=== PATIENT | male | born 1990 | race Caucasian/White ===

== ENCOUNTER 2024-07-11 12:35 | Emergency (ER) | payer SELFPAY ==
[2024-07-11 12:39] VITALS: BP 153/99
[2024-07-11 13:16] LABS: Urine Albumin 1+ (Neg - Trace); Urine Bilirubin Negative (Negative); Urine Character Clear (Clear); Urine Color Yellow; Urine Glucose Negative (Negative); Urine Ketone Negative (Negative); Urine Leukocyte 1+ (Negative); Urine Nitrite Negative (Negative); Urine Occult Blood Negative (Negative); Urine Specific Gravity 1.015 (<1.030); Urine Urobilinogen Negative (Neg - 1+)
[2024-07-11 13:19] LABS: % Basophils 0.9 % (0-2); % Eosinophils 9.3 % (0-6); % Immature Granulocytes 0.3 % (0-0.5); % Lymphocytes 31.3 % (20.5-51.1); % Monocytes 10.7 % (1.7-9.3); % Neutrophils 47.5 % (42.2-75.2); Absolute Basophils 0.1 10^3/uL (0-0.2); Absolute Eosinophils 0.7 10^3/uL (0-0.7); Absolute Lymphocytes 2.4 10^3/uL (1.2-3.4); Absolute Monocytes 0.8 10^3/uL (0.1-0.6); Absolute Neutrophils 3.6 10^3/uL (1.4-6.5); Hematocrit 41.4 % (39.0-52.0); Hemoglobin 14.8 g/dL (13.0-18.0); Mean Corp Hgb Conc. 35.7 g/dL (33.0-37.0); Mean Corpuscular Hgb 32.7 pg (27.0-31.0); Mean Corpuscular Volume 91.4 fL (80.0-94.0); Mean Platelet Volume 8.6 fL (7.4-10.4); Nucleated Red Blood Cells % 0 % (-); Platelet Count 354 10^3/uL (130-400); Red Blood Cell Count 4.53 10^6/uL (4.70-6.10); Red Cell Dist. Width 12.8 % (11.5-14.5); White Blood Cell Count 7.6 10^3/uL (4.8-10.8)
[2024-07-11 13:28] LABS: ALT (SGPT) 136 U/L (0-50); AST (SGOT) 49 U/L (17-59); Albumin 4.6 g/dl (3.5-5.0); Alkaline Phosphatase 56 U/L (38-126); Blood Urea Nitrogen 21 mg/dl (9-20); Calcium 9.6 mg/dl (8.4-10.2); Carbon Dioxide 29 mmol/L (22-30); Chloride 105 mmol/L (98-107); Glucose 113 mg/dl (70-99); Sodium 141 mmol/L (135-145); Total Protein 7.5 g/dl (6.3-8.2); eGFR > 60.00
[2024-07-11 13:30] LABS: Urine Squamous Cell 0-2 /LPF (Few)
[2024-07-11 13:31] LABS: Urine Red Blood Cell 0-2 /HPF (0-2); Urine White Cell 0-2 /HPF (0-5)
[2024-07-11 13:53] LABS: Benzodiazepines Positive (Negative); Marijuana Positive (Negative)
[2024-07-11 13:54] LABS: Amphetamines Positive (Negative); Barbiturates Negative (Negative); Buprenorphine Negative (Negative); Cocaine Negative (Negative); Methadone Negative (Negative); Methamphetamines Negative (Negative); Opiates Negative (Negative); Phencyclidine Negative (Negative); Tricyclic Antidepressants Negative (Negative)
[2024-07-11 14:35] LABS: Fentanyl, Urine Negative (Negative)
[2024-07-11 15:16] VITALS: BP 143/96
[2024-07-11 17:43] VITALS: BP 152/74
--- NOTE | 2024-07-11 17:52 | ED.GENMED ---
History of Present Illness
General
Chief Complaint: Change in Mental Status
Time Seen by Provider: 07/11/24 17:18
History of Present Illness
History of Present Illness:
34-year-old male with history of anxiety presenting for feeling 'out of it.' Patient reports that he lost his job about 2 months ago and has since had a progressive decline. Patient admits to using nitrous oxide, last use was 2 days ago, however
admits to using a lot 2 days ago. He also uses edibles, used 1 yesterday. He reports that he has been feeling delayed. He notes that he understands that everyone is saying, however has difficulty processing. They went to [place] yesterday, was
evaluated, and then patient left the hospital. Does note that he had imaging of his head at that time. Denies SI or HI. Does report a lot of anxiety, and notes that he has been clutching his abdomen when he is anxious. Denies chest pain or
difficulty breathing. Also reports right ear pain, for which he was started on amoxicillin for suspected ear infection. He believes all of his symptoms are stemming from his ear. Denies additional acute medical complaints
Past History
Past History
ED Past Medical History: None
ED Past Surgical History: None
Social History
Tobacco: Non-smoker
Employment: Employed
Phy Exam
Physical Exam
Physical Exam:
General: Well-appearing, no clinical signs of dehydration, nontoxic and in no acute distress
HEENT: protecting airway, pupils equal and reactive, extraocular movements intact. No significant erythema to the right TM. Mild tenderness to the tragus and external ear canal. No drainage. No tenderness to the mastoid
Neck: appears supple
CV: Normal heart rate, regular rhythm
Resp: No accessory muscle use, no increased work of breathing, lungs clear to auscultation bilaterally
Abd: Soft and non-distended, no tenderness to palpation
Extremities: No deformities, no swelling, no erythema
Neuro: alert, no focal neurologic deficit
: deferred
Rectal: deferred
Psych: Normal affect
Skin: Intact
Course
Orders/Labs/Results
Orders:
Orders
07/11/24 12:46
Electrocardiogram (*1) Urgent
Reason for Study: Tachycardia
EKG- Treatment ONCE
07/11/24 12:49
Crisis Consult Urgent
Reason for Consult: depression
07/11/24 13:01
Complete Blood Count/With Diff Urgent
Comprehensive Metabolic Panel Urgent
Fentanyl, Urine Urgent
Urinalysis Reflex To Culture Urgent
Date Specimen was Collected: 07/11/24
Time Specimen was Collected: 12:46
Urine Drug Abuse Screen Urgent
Date Specimen was Collected: 07/11/24
Time Specimen was Collected: 12:46
Urine Microscopic Reflex Cult Urgent
Urine Culture Urgent
CHANI Source: U
Specimen Description:
Date Specimen was Collected: 07/11/24
Time Specimen was Collected: 12:46
07/11/24 17:37
CT Head W/o Iv Contrast Urgent
Comment:
Reason For Exam: confusion
Abnormal Lab Results
07/11/24
13:01
RBC 4.53 L 10^6/uL
(4.70-6.10)
MCH 32.7 H pg
(27.0-31.0)
Absolute Monos (auto) 0.8 H 10^3/uL
(0.1-0.6)
Monocytes % 10.7 H %
(1.7-9.3)
Eosinophils % 9.3 H %
(0-6)
BUN 21 H mg/dl
(9-20)
Glucose 113 H mg/dl
(70-99)
ALT 136 H U/L
(0-50)
Leukocyte Esterase Rfl 1+ A
(Negative)
Urine Albumin (Reflex) 1+ A
(Neg - Trace)
Ur Amphetamines Screen Positive H
(Negative)
U Benzodiazepines Scrn Positive H
(Negative)
U Marijuana (THC) Screen Positive H
(Negative)
07/11/24 13:01
07/11/24 13:01
Vital Signs
Initial and Last Documented VS:
Initial Vital Signs
Temp Pulse Resp BP Pulse Ox
98.4 F 121 18 153/99 98
07/11/24 12:39 07/11/24 12:39 07/11/24 12:39 07/11/24 12:39 07/11/24 12:39
Last Documented Vital Signs
Temp Pulse Resp BP Pulse Ox
97.7 F 76 20 152/74 98
07/11/24 15:16 07/11/24 17:43 07/11/24 17:43 07/11/24 17:43 07/11/24 17:43
MDM/Problems Addressed
MDM/Problems Addressed:
34-year-old male presenting to the emergency department for fogginess and feeling out of it for the past several weeks, worsened in the past 2 days. Vitals on arrival are significant for mild hypertension.
On exam patient is resting comfortably, no acute distress. Patient is awake, alert, oriented. He does not presently appear to be confused, does have a strange affect. He is hemodynamically stable. No focal neurologic deficits on exam.
Ultimately suspect the patient symptoms are secondary to polysubstance abuse. Patient reports using nitrous oxide, marijuana, alcohol. Patient had screening laboratory analysis prior to my assessment. Labs are unremarkable. Patient's UDS however
is positive for amphetamines and benzodiazepines. Patient denies use of these substances. Do not suspect that patient's ear is the etiology of his symptoms. Possible mild otitis externa. Patient afebrile, nontoxic without concern for systemic
infection. Will repeat CT brain to ensure no acute abnormality. Will also consent with crisis
19:10 -Labs are unremarkable. CT brain unremarkable. Patient did not want crisis services. Will consult with [facility], patient is interested in rehabilitation
21:30 -patient excepted to the [facility]. Stable for discharge. Will start patient on eardrops for possible otitis externa. Patient medically clear for rehabilitation services.
*EKG
Interpreted by ED Provider?: Yes
EKG Intrepretation Date: 07/11/24
EKG Intrepretation Time: 18:01
Interpretation: normal
Heart Rate: 96
Rate: normal
Rhythm: sinus
Gower: normal axis
Interval: normal interval
QRS Pattern: normal QRS
Ischemia: no ischemia
*Critical Care Note
Total Time (30-74mins, 75-104mins- exclusive of procedures): Not Applicable
ED Attending Note
-
Portions of this chart may have been created with voice recognition software.� Occasional wrong word or��sound alike� substitutions may have occurred due to the inherent limitations of voice recognition software.
Discharge Plan
Departure
Prescriptions:
No Action
cyclobenzaprine 10 MG tablet
10 mg PO TID PRN (Reason: spasm) Qty: 12 0RF
Referrals:
NONE,* [Family Provider] -
Interventions
Interventions:
*Risk Screen - Suicide Last Done: 07/11/24 12:39
*General Assessment Last Done: 07/11/24 12:39
*Neglect/Abuse Screening Last Done: 07/11/24 12:39
ED- Fall Risk Assessment Last Done: 07/11/24 17:42
ED- Pulmonary Assessment Last Done: 07/11/24 17:42
ED- Neurological Assessment Last Done: 07/11/24 17:42
ED- Cardiac Assessment Last Done: 07/11/24 17:42
Discharge Date and Time
Print Language: MALTESE
[2024-07-11 21:45] VITALS: BP 155/109
== END 2024-07-11 21:45 | disposition other institution (70) ==
LOC: EMR 12:35
PROVIDERS: Emergency Medicine; EMERGENCY PHYSICIAN Student in an Organized Health Care Education/Training Program
DX: R41.82 Altered mental status, unspecified (principal); H60.90 Unspecified otitis externa, unspecified ear; I10 Essential (primary) hypertension; F19.10 Other psychoactive substance abuse, uncomplicated
CPT/HCPCS: 99284; 70450; 80053; 80306; 80307; 81003; 81015; 85025; 87086; 93005